=== PATIENT | female | born 1975 | race Caucasian/White ===

== ENCOUNTER 2024-02-10 17:57 | Observation (INO) ==
[2024-02-10 19:18] LABS: Activated Partial Thrombo Time 28.5 seconds (26.0-38.0); INR 1.06 (0.85-1.14)
[2024-02-10 19:19] LABS: ABS Basophils 0.1 10^3/uL (0.0-0.1); ABS Eosinophils 0.1 10^3/uL (0.0-0.5); ABS Lymphocytes 1.4 10^3/uL (1.0-4.8); ABS Monocytes 0.6 10^3/uL (0.0-0.9); ABS Neutrophils 7.9 10^3/uL (1.5-7.6); Eosinophil % 1.1 %; Hematocrit 37.4 % (35-45); Hemoglobin 12.8 g/dL (11.5-14.3); Lymphocyte % 13.7 %; Mean Corpuscular Hemoglobin 29.3 pg (27-33); Mean Corpuscular Hgb Conc 34.2 g/dL (31-36); Mean Corpuscular Volume 85.7 fL (80-97); Mean Platelet Volume 6.8 fL (7.5-11.2); Platelet Count 329 10^3/uL (150-450); Red Blood Count 4.37 10^6/uL (3.63-4.92); Red Cell Distribution Width 14.8 % (12-17)
[2024-02-10 20:19] LABS: Albumin 4.3 g/dL (3.2-5.2); Calcium 9.4 mg/dL (8.6-10.3); Creatinine, Serum 0.8 mg/dL (0.51-0.95); Globulin 2.2 g/dL (2-4); HDL Cholesterol 55.8 mg/dL; Indirect Bilirubin 0.3 mg/dL (0.3-1.0); Potassium 4.3 mmol/L (3.5-5.0); Total Bilirubin 0.3 mg/dL (0.2-1.0); Total Protein 6.5 g/dL (6.4-8.9); eGFR CKD-EPI 89.7 (>60)
[2024-02-10 21:59] LABS: Urine Appearance Clear; Urine Bilirubin Negative (Negative); Urine Blood Negative (Negative); Urine Color Yellow; Urine Glucose Negative (Negative); Urine Ketones Negative (Negative); Urine Nitrite Negative (Negative); Urine Protein Trace (Negative); Urine Specific Gravity >1.050 (1.002-1.030); Urine Urobilinogen Negative (Negative)
[2024-02-11] MEDS ORDERED: Mometasone/Formoter 200/5 MDI INH PRN (01:35)
[2024-02-11] MEDS ORDERED: Albuterol HFA INHALER 8 gm MDI INH PRN (01:35)
[2024-02-11 06:25] LABS: ABS Basophils 0.1 10^3/uL (0.0-0.1); ABS Eosinophils 0.2 10^3/uL (0.0-0.5); ABS Lymphocytes 1.9 10^3/uL (1.0-4.8); ABS Monocytes 0.8 10^3/uL (0.0-0.9); Eosinophil % 1.5 %; Hematocrit 37.3 % (35-45); Hemoglobin 12.8 g/dL (11.5-14.3); Lymphocyte % 17.6 %; Mean Corpuscular Hemoglobin 29.7 pg (27-33); Mean Corpuscular Hgb Conc 34.4 g/dL (31-36); Mean Corpuscular Volume 86.4 fL (80-97); Mean Platelet Volume 6.7 fL (7.5-11.2); Platelet Count 292 10^3/uL (150-450); Red Blood Count 4.31 10^6/uL (3.63-4.92)
[2024-02-11 06:39] LABS: Albumin 4.1 g/dL (3.2-5.2); Albumin/Globulin Ratio 1.9 (1-3); Creatinine, Serum 0.95 mg/dL (0.51-0.95); Globulin 2.2 g/dL (2-4); Magnesium 2.1 mg/dL (1.9-2.7); Potassium 3.8 mmol/L (3.5-5.0); Total Bilirubin 0.5 mg/dL (0.2-1.0); Total Protein 6.3 g/dL (6.4-8.9)
[2024-02-11] MEDS: ATOGEPANT 60 MG PO SCH (10:00)
[2024-02-11] MEDS: NF:UBROGEPANT 50 MG TABLET PO SCH (10:00)
[2024-02-11 18:02] VITALS: BP 137/104
== END 2024-02-11 18:50 | disposition home or self-care (01) ==
LOC: EDHOLD 17:57 → ED 17:57 → SUATTDRO 21:37 → MEDTELE 02-11 04:39
PROVIDERS: ADMIT Student in an Organized Health Care Education/Training Program; ATTEND Internal Medicine